=== PATIENT | male | born 1975 | race Caucasian/White ===

== ENCOUNTER 2023-07-06 15:57 | Observation (INO) ==
[2023-07-06] MEDS: Al Hydrox/Mg Hydrox/Simet LIQ 30 ML UDC PO ONE (16:51)
[2023-07-06 17:36] LABS: Urine Benzodiazepine Screen Presumptive Positive (None Detect); Urine Cannabinoids Screen None Detected (None Detect); Urine Opiates Screen Presumptive Positive (None Detect)
[2023-07-06] MEDS: Calcium Carb (TUMS) 500 mg CHEW TAB PO ONE (19:18)
[2023-07-06 23:26] LABS: ABS Eosinophils 0.3 10^3/uL (0.0-0.5); ABS Lymphocytes 1.1 10^3/uL (1.0-4.8); ABS Monocytes 0.6 10^3/uL (0.0-1.1); ABS Neutrophils 4.9 10^3/uL (1.5-7.6); ABS Nucleated RBC 0.02 10^3/ul; Eosinophil % 4.1 %; Hematocrit 17.8 % (38-53); Hemoglobin 5.1 g/dL (13.2-16.3); Mean Corpuscular Hemoglobin 18.5 pg (27-33); Mean Corpuscular Hgb Conc 28.7 g/dL (31-36); Mean Corpuscular Volume 64.5 fL (80-97); Mean Platelet Volume 6.9 fL (7.5-11.2); Nucleated Red Blood Cells % 0.3 %/100WBC (0.0-0.8); Platelet Count 635 10^3/uL (150-450); Red Blood Count 2.76 10^6/uL (4.06-5.63); Red Cell Distribution Width 23.4 % (12-17); White Blood Count 6.9 10^3/uL (3.6-10.2)
[2023-07-06 23:37] LABS: Activated Partial Thrombo Time 27.8 seconds (26.0-38.0); INR 1.25 (0.83-1.13)
[2023-07-06 23:59] LABS: Albumin 2.7 g/dL (3.2-5.2); Albumin/Globulin Ratio 0.6 (1-3); Calcium 7.6 mg/dL (8.6-10.3); Creatinine, Serum 0.73 mg/dL (0.67-1.17); Globulin 4.5 g/dL (2-4); Potassium 4.3 mmol/L (3.5-5.0); Total Bilirubin 0.3 mg/dL (0.2-1.0); Total Protein 7.2 g/dL (6.4-8.9); eGFR CKD-EPI 112.9 (>60)
[2023-07-07] MEDS: Sucralfate 1 gm SUSP 1 GM/10 ML UDC PO ONE (01:13)
[2023-07-07] MEDS: Piperacillin/Tazobac 3.375 BAG 3.375 GM/100 ML BAG IV ONE (01:15)
[2023-07-07] MEDS: Vancomycin 1,000 MG in NS 0.9% 250 ml 250 ML IVPB ONE (03:48)
[2023-07-07] MEDS: Albuterol/Ipratropium NEB.SOL (2.5/0.5 MG) 3 ML NEB.SOLN INH ONE (03:52)
[2023-07-07] MEDS: Albuterol/Ipratropium NEB.SOL (2.5/0.5 MG) 3 ML NEB.SOLN INH SCH (03:52)
[2023-07-07] MEDS ORDERED: Albuterol/Ipratropium NEB.SOL (2.5/0.5 MG) 3 ML NEB.SOLN INH PRN (03:56)
[2023-07-07] MEDS ORDERED: Ondansetron 4 mg VIAL 2 MG/ML 2 ml VIAL IV PRN (04:23)
[2023-07-07 05:09] LABS: Hematocrit 18.1 % (38-53); Hemoglobin 5.5 g/dL (13.2-16.3)
[2023-07-07 05:22] LABS: High Sensitivity Troponin 1 Hr 8 pg/mL (<20)
[2023-07-07] MEDS: Famotidine IV 10 MG/ML 2 ml VIAL (20 mg) IV SLOW PU ONE (05:42)
[2023-07-07] MEDS: Azithromycin 500 mg/250 ml NS 500 MG/250 ML BAG IVPB SCH (06:08)
[2023-07-07] MEDS: Pantoprazole VIAL 40 MG VIAL IV SCH (07:46)
[2023-07-07] MEDS: Enoxaparin 40 MG/0.4 ML SYR SUBCUT SCH (07:46)
[2023-07-07 13:59] LABS: ALT 9 U/L (7-52); AST 16 U/L (13-39); Albumin 2.2 g/dL (3.2-5.2); Albumin/Globulin Ratio 0.6 (1-3); Alkaline Phosphatase 84 U/L (35-149); Anion Gap 3 mmol/L (2-16); Blood Urea Nitrogen 12 mg/dL (6-24); CO2 Carbon Dioxide 30 mmol/L (22-32); Calcium 6.6 mg/dL (8.6-10.3); Chloride 104 mmol/L (101-111); Globulin 3.7 g/dL (2-4); Glucose 78 mg/dL (70-100); Potassium 4.1 mmol/L (3.5-5.0); Sodium 137 mmol/L (135-145); Total Bilirubin 0.3 mg/dL (0.2-1.0); Total Protein 5.9 g/dL (6.4-8.9); eGFR CKD-EPI 126.6 (>60)
[2023-07-07 16:39] LABS: % Iron Saturation 7 % (15-55); .Transferrin 206 mg/dL (203-362); Iron < 20 ug/dL (50-212); Total Iron Binding Capacity 288 mcg/dL (250-450); Unsaturated Iron Binding 268 ug/dL
[2023-07-07 17:04] LABS: Folate 6.38 ng/mL (5.90-24.80)
[2023-07-07 17:05] LABS: Vitamin B12 770 pg/mL (180-914)
[2023-07-07] MEDS: Morphine 2 MG/ML SYRINGE IV PRN (17:11)
[2023-07-07] MEDS: Iron Sucrose 200 MG in NS 0.9% 100 ml BAG 100 ML IVPB ONE (17:17)
[2023-07-08] MEDS: COWS Protocol Daily Order Reminder FOLLOW UP SCH (06:07)
[2023-07-08 06:25] LABS: ALT 13 U/L (7-52); Albumin 2.7 g/dL (3.2-5.2); Albumin/Globulin Ratio 0.6 (1-3); Alkaline Phosphatase 95 U/L (35-149); Anion Gap 7 mmol/L (2-16); Blood Urea Nitrogen 9 mg/dL (6-24); CO2 Carbon Dioxide 28 mmol/L (22-32); Calcium 7.7 mg/dL (8.6-10.3); Chloride 101 mmol/L (101-111); Creatinine, Serum 0.71 mg/dL (0.67-1.17); Globulin 4.8 g/dL (2-4); Glucose 90 mg/dL (70-100); Sodium 136 mmol/L (135-145); Total Bilirubin 0.3 mg/dL (0.2-1.0); Total Protein 7.5 g/dL (6.4-8.9); eGFR CKD-EPI 113.9 (>60)
[2023-07-08 06:36] VITALS: BP 157/97
[2023-07-08 07:05] LABS: ABS Basophils 0.1 10^3/uL (0.0-0.1); ABS Eosinophils 0.3 10^3/uL (0.0-0.5); ABS Lymphocytes 1.5 10^3/uL (1.0-4.8); ABS Monocytes 0.4 10^3/uL (0.0-1.1); ABS Neutrophils 2.8 10^3/uL (1.5-7.6); ABS Nucleated RBC 0.03 10^3/ul; Anisocytosis 3+; Eosinophil % 6.1 %; Hematocrit 30.3 % (38-53); Hemoglobin 8.8 g/dL (13.2-16.3); Hypochromasia 2+; Lymphocyte % 30.4 %; Mean Corpuscular Hemoglobin 21.7 pg (27-33); Mean Corpuscular Hgb Conc 29.1 g/dL (31-36); Mean Corpuscular Volume 74.6 fL (80-97); Mean Platelet Volume 6.6 fL (7.5-11.2); Microcytosis 2+; Nucleated Red Blood Cells % 0.6 %/100WBC (0.0-0.8); Platelet Count 36 10^3/uL (150-450); Polychromasia 1+; Red Blood Count 4.06 10^6/uL (4.06-5.63); Red Cell Distribution Width 24.8 % (12-17)
== END 2023-07-08 10:15 | disposition left against medical advice (07) ==
LOC: ED 15:57 → EDHOLD 15:57 → SUATTDRO 07-07 01:43 → SSU 07-07 07:56
PROVIDERS: ADMIT Student in an Organized Health Care Education/Training Program; ATTEND Hospitalist

== ENCOUNTER 2023-11-17 00:02 | Inpatient (IN) ==
[2023-11-17] MEDS: Propofol 10 mg/ml 100 ML BTL 1,000 MG/100 ML BTL IV SCH (03:36)
[2023-11-17 04:00] LABS: Hemoglobin 6.2 g/dL (13.2-16.3); INR 1.34 (0.83-1.13); Mean Corpuscular Hemoglobin 19.2 pg (27-33); Mean Corpuscular Hgb Conc 28.2 g/dL (31-36); Mean Corpuscular Volume 68.2 fL (80-97); Platelet Count 300 10^3/uL (150-450); Red Blood Count 3.23 10^6/uL (4.06-5.63); White Blood Count 14.2 10^3/uL (3.6-10.2)
[2023-11-17] MEDS ORDERED: Midazolam 5 mg/5 ml VIAL 1 mg/ml 5 ml VIAL (5 mg) IV SLOW PU PRN (04:05)
[2023-11-17 04:23] LABS: Resp Rate 18
[2023-11-17 04:25] LABS: PCO2 Arterial 54 mmHg (35-45); PO2 Arterial 72 mmHg (80-100)
[2023-11-17 04:32] LABS: Albumin 2.7 g/dL (3.2-5.2); Albumin/Globulin Ratio 0.7 (1-3); C Reactive Protein 43.46 mg/L (<8.01); Creatinine, Serum 1.05 mg/dL (0.67-1.17); Globulin 4.1 g/dL (2-4); Magnesium 2.6 mg/dL (1.9-2.7); Potassium 3.6 mmol/L (3.5-5.0); Total Bilirubin 0.3 mg/dL (0.2-1.0); Total Protein 6.8 g/dL (6.4-8.9); eGFR CKD-EPI 87.6 (>60)
[2023-11-17] MEDS: Enoxaparin 40 MG/0.4 ML SYR SUBCUT SCH (04:43)
[2023-11-17] MEDS: Chlorhexidine MOUTHWASH 0.12% 15 ML UDC TOPICAL SCH (04:43)
[2023-11-17] MEDS: Pantoprazole VIAL 40 MG VIAL IV SCH (04:43)
[2023-11-17] MEDS: D5NS 0.9% 1000 ml BAG 1,000 ML IV SCH (05:10)
[2023-11-17 05:28] LABS: ABS Eosinophils 0.1 10^3/uL (0.0-0.5); ABS Monocytes 0.6 10^3/uL (0.0-1.1); ABS Neutrophils 12.5 10^3/uL (1.5-7.6); ABS Nucleated RBC 0.01 10^3/ul; Anisocytosis 3+; Eosinophil % 0.8 %; Hypochromasia 3+; Lymphocyte % 7.2 %; Microcytosis 3+
[2023-11-17] MEDS: Morphine 2 MG/ML SYRINGE IV ONE (08:15)
[2023-11-17] MEDS: Albuterol/Ipratropium NEB.SOL (2.5/0.5 MG) 3 ML NEB.SOLN ONE (08:25)
[2023-11-17] MEDS: Morphine 2 MG/ML SYRINGE ONE (08:36)
[2023-11-17] MEDS: CMCS: FLUTICAS/UMECLI/VILANT 200-62.5-25 MDI (NF) INH SCH (08:47)
[2023-11-17 10:14] LABS: Hematocrit 25.7 % (38-53); Hemoglobin 7.8 g/dL (13.2-16.3)
[2023-11-17] MEDS ORDERED: Albuterol 0.5% CONC CONTINUOUS NEB.SOL 5 mg/ml 20 ml BOT INH PRN (13:18)
[2023-11-17] MEDS: Albuterol 2.5mg/3 ml (0.083%) NEB.SOLN INH PRN (13:37)
[2023-11-17] MEDS: Nicotine PATCH 14 MG/24 HR PATCH TRANSDERM SCH (14:12)
[2023-11-17] MEDS: Morphine 2 MG/ML SYRINGE IV PRN (14:31)
[2023-11-17] MEDS ORDERED: Lorazepam PYXIS KEY PRN (15:23)
[2023-11-17] MEDS: Albuterol 2.5mg/3 ml (0.083%) NEB.SOLN INH ONE (18:00)
[2023-11-17] MEDS: Albuterol/Ipratropium NEB.SOL (2.5/0.5 MG) 3 ML NEB.SOLN INH PRN (18:10)
[2023-11-17] MEDS: LORazepam 2 mg VIAL 1 ml IV PUSH ONE (18:17)
[2023-11-17] MEDS ORDERED: LORazepam 2 MG/ML 1 mL Syringe IV PRN (19:20)
[2023-11-17] MEDS: LORazepam 2 mg VIAL 1 ml IV PUSH PRN (21:18)
[2023-11-17] MEDS: NORMOSOL-R pH 7.4 1000 mL BAG 1,000 ML IV SCH (22:56)
[2023-11-17] MEDS ORDERED: Lactated Ringers 1000 ml BAG 1,000 ML IV SCH (23:00)
[2023-11-18 04:21] LABS: PCO2 Arterial 64 mmHg (35-45); PO2 Arterial 167 mmHg (80-100)
[2023-11-18 04:37] LABS: Calcium 7.5 mg/dL (8.6-10.3); Creatinine, Serum 0.79 mg/dL (0.67-1.17); eGFR CKD-EPI 109.6 (>60)
[2023-11-18 05:27] LABS: ABS Eosinophils 0.1 10^3/uL (0.0-0.5); ABS Lymphocytes 0.7 10^3/uL (1.0-4.8); ABS Monocytes 0.7 10^3/uL (0.0-1.1); ABS Neutrophils 13.4 10^3/uL (1.5-7.6); Anisocytosis 3+; Eosinophil % 0.8 %; Hematocrit 22.7 % (38-53); Hemoglobin 6.8 g/dL (13.2-16.3); Hypochromasia 2+; Lymphocyte % 4.9 %; Mean Corpuscular Hemoglobin 20.9 pg (27-33); Mean Corpuscular Volume 69.5 fL (80-97); Mean Platelet Volume 8.1 fL (7.5-11.2); Microcytosis 3+; Platelet Count 218 10^3/uL (150-450); Polychromasia 1+; Red Blood Count 3.27 10^6/uL (4.06-5.63); Red Cell Distribution Width 25.9 % (12-17)
[2023-11-18] MEDS: Albuterol/Ipratropium NEB.SOL (2.5/0.5 MG) 3 ML NEB.SOLN INH SCH (09:06)
[2023-11-18] MEDS: Pantoprazole VIAL 40 MG VIAL IV SCH (10:17)
[2023-11-18] MEDS: NS 0.9% 1000 ml BAG 1,000 ML IV SCH (10:17)
[2023-11-18] MEDS: Vancomycin 1,500 MG in NS 0.9% 250 ml 250 ML IVPB ONE (11:18)
[2023-11-18] MEDS: cefTRIAXone 1 gm/50 mL D5W 1 GM/50 ML BAG IV SCH (11:19)
[2023-11-18 11:39] LABS: Venous Bicarbonate HCO3 27.7 mmol/L (24-28)
[2023-11-18] MEDS: Methadone ORALSYR CONC LIQ 10 MG/ML PO SCH (14:14)
[2023-11-19 05:21] LABS: Blood Urea Nitrogen 11 mg/dL (6-24); CO2 Carbon Dioxide 35 mmol/L (22-32); Calcium 7.8 mg/dL (8.6-10.3); Chloride 100 mmol/L (101-111); Creatinine, Serum 0.59 mg/dL (0.67-1.17); Glucose 86 mg/dL (70-100); Potassium 4.1 mmol/L (3.5-5.0); Sodium 135 mmol/L (135-145); eGFR CKD-EPI 119.7 (>60)
[2023-11-19 05:29] LABS: ALT 131 U/L (7-52); AST 363 U/L (13-39); Albumin 2.7 g/dL (3.2-5.2); Albumin/Globulin Ratio 0.7 (1-3); Alkaline Phosphatase 84 U/L (35-149); Globulin 3.9 g/dL (2-4); Magnesium 1.7 mg/dL (1.9-2.7); Total Bilirubin 0.3 mg/dL (0.2-1.0); Total Protein 6.6 g/dL (6.4-8.9)
[2023-11-19 05:39] LABS: Creatine Kinase 10115 U/L (10-223)
[2023-11-19] MEDS: Magnesium Sulfate 2 gm BAG 2 GM/50 ML BAG IVPB ONE (06:05)
[2023-11-19 07:17] LABS: ABS Eosinophils 0.3 10^3/uL (0.0-0.5); ABS Lymphocytes 1.1 10^3/uL (1.0-4.8); ABS Monocytes 0.7 10^3/uL (0.0-1.1); ABS Neutrophils 6.2 10^3/uL (1.5-7.6); Anisocytosis 2+; Eosinophil % 3.7 %; Hematocrit 24.7 % (38-53); Hemoglobin 7.7 g/dL (13.2-16.3); Hypochromasia 1+; Lymphocyte % 13.1 %; Mean Corpuscular Hemoglobin 22.6 pg (27-33); Mean Corpuscular Hgb Conc 31.1 g/dL (31-36); Mean Corpuscular Volume 72.8 fL (80-97); Mean Platelet Volume 8.3 fL (7.5-11.2); Microcytosis 2+; Platelet Count 190 10^3/uL (150-450); Polychromasia 1+; White Blood Count 8.3 10^3/uL (3.6-10.2)
[2023-11-19] MEDS ORDERED: Vancomycin per Pharmacy 1 EA NOTE FOLLOW UP PRN (09:40)
[2023-11-19] MEDS: Vancomycin 1000 MG in NS 0.9% 250 ML IVPB SCH (10:03)
[2023-11-19] MEDS ORDERED: Nicotine GUM 4MG FRUIT FLAVOR PO PRN (20:27)
[2023-11-20 04:57] LABS: Hematocrit 25.4 % (38-53); Hemoglobin 7.7 g/dL (13.2-16.3); Mean Corpuscular Hemoglobin 22.4 pg (27-33); Mean Corpuscular Hgb Conc 30.2 g/dL (31-36); Red Blood Count 3.43 10^6/uL (4.06-5.63); Red Cell Distribution Width 26.8 % (12-17); White Blood Count 5.9 10^3/uL (3.6-10.2)
[2023-11-20 05:38] LABS: Anion Gap 3 mmol/L (2-16); Blood Urea Nitrogen 8 mg/dL (6-24); CO2 Carbon Dioxide 34 mmol/L (22-32); Calcium 7.7 mg/dL (8.6-10.3); Chloride 100 mmol/L (101-111); Creatinine, Serum 0.56 mg/dL (0.67-1.17); Glucose 113 mg/dL (70-100); Sodium 137 mmol/L (135-145); eGFR CKD-EPI 121.6 (>60)
[2023-11-20 07:29] LABS: ABS Eosinophils 0.5 10^3/uL (0.0-0.5); ABS Lymphocytes 0.8 10^3/uL (1.0-4.8); ABS Monocytes 0.6 10^3/uL (0.0-1.1); Eosinophil % 7.7 %; Mean Platelet Volume 8.1 fL (7.5-11.2); Platelet Count 191 10^3/uL (150-450)
[2023-11-20] MEDS: methylPREDNISolone SOD SUCC 40 mg/ml 1 ml VIAL IV ONE (09:07)
[2023-11-20] MEDS: Vancomycin Trough Check NOTE FOLLOW UP ONE (09:08)
[2023-11-20] MEDS: Cefepime 1 GM in Dextrose 1 GM/50 ML BAG IV SCH (10:08)
[2023-11-20 10:09] LABS: Magnesium 1.5 mg/dL (1.9-2.7); Potassium Redraw 3.6 mmol/L (3.5-5.0)
[2023-11-20] MEDS: Lidocaine 1% MPF 5 ML VIAL INJ ONE (11:04)
[2023-11-20] MEDS: Iohexol 350 (CONTRAST) 500 ML MDV IV ONE (13:00)
[2023-11-20] MEDS: Enoxaparin 60 MG/0.6 ML SYR SUBCUT SCH (14:57)
[2023-11-20 15:07] LABS: PCO2 Arterial 71 mmHg (35-45); PO2 Arterial 159 mmHg (80-100)
[2023-11-20] MEDS: CEFEPIME 2 GM in Dextrose 50 mL IV SCH (20:50)
[2023-11-21 07:01] LABS: Calcium 7.9 mg/dL (8.6-10.3); Creatinine, Serum 0.59 mg/dL (0.67-1.17); Magnesium 1.5 mg/dL (1.9-2.7); eGFR CKD-EPI 119.7 (>60)
[2023-11-21 07:16] LABS: Hematocrit 24.7 % (38-53); Hemoglobin 7.2 g/dL (13.2-16.3); Mean Corpuscular Hgb Conc 29.4 g/dL (31-36); Mean Corpuscular Volume 75.1 fL (80-97); Mean Platelet Volume 8.3 fL (7.5-11.2); Platelet Count 212 10^3/uL (150-450); Red Blood Count 3.29 10^6/uL (4.06-5.63); Red Cell Distribution Width 26.7 % (12-17); White Blood Count 6.9 10^3/uL (3.6-10.2)
[2023-11-21 07:32] LABS: ABS Eosinophils 0.1 10^3/uL (0.0-0.5); ABS Lymphocytes 1.1 10^3/uL (1.0-4.8); ABS Monocytes 0.8 10^3/uL (0.0-1.1); ABS Neutrophils 4.9 10^3/uL (1.5-7.6); Anisocytosis 2+; Eosinophil % 1.1 %; Hypochromasia 2+; Lymphocyte % 16.1 %; Microcytosis 1+; Polychromasia 1+
[2023-11-21] MEDS: Sulfur Hexaflouride MICROSPHR 25 MG VIAL IV ONE (10:03)
[2023-11-21] MEDS: Magnesium Sulfate 2 gm BAG 2 GM/50 ML BAG IV ONE (11:52)
[2023-11-21] MEDS: Nicotine Lozenge mini 4 MG LOZNG.MINI MT PRN (17:39)
[2023-11-21] MEDS: Cefepime 1 GM in Dextrose 1 GM/50 ML BAG IV SCH (20:16)
[2023-11-22 05:41] LABS: Hematocrit 23.6 % (38-53); Hemoglobin 7.2 g/dL (13.2-16.3); Mean Corpuscular Hemoglobin 23.1 pg (27-33); Mean Corpuscular Hgb Conc 30.5 g/dL (31-36); Mean Corpuscular Volume 75.9 fL (80-97); Mean Platelet Volume 8.2 fL (7.5-11.2); Platelet Count 237 10^3/uL (150-450); Red Blood Count 3.11 10^6/uL (4.06-5.63)
[2023-11-22 06:02] LABS: Blood Urea Nitrogen 14 mg/dL (6-24); CO2 Carbon Dioxide 44 mmol/L (22-32); Calcium 7.9 mg/dL (8.6-10.3); Chloride 99 mmol/L (101-111); Creatinine, Serum 0.55 mg/dL (0.67-1.17); Glucose 89 mg/dL (70-100); Magnesium 1.6 mg/dL (1.9-2.7); Sodium 142 mmol/L (135-145); eGFR CKD-EPI 122.2 (>60)
[2023-11-22] MEDS: Magnesium Sulfate 2 gm BAG 2 GM/50 ML BAG IVPB ONE ×2 (06:21→07:41)
[2023-11-22 06:26] LABS: Venous Bicarbonate HCO3 35.6 mmol/L (24-28)
[2023-11-22] MEDS: Nicotine PATCH 21 MG/24 HR PATCH TRANSDERM SCH (07:40)
[2023-11-22 08:00] LABS: ABS Eosinophils 0.5 10^3/uL (0.0-0.5); ABS Lymphocytes 1.2 10^3/uL (1.0-4.8); ABS Monocytes 0.6 10^3/uL (0.0-1.1); ABS Neutrophils 2.7 10^3/uL (1.5-7.6); Anisocytosis 2+; Eosinophil % 9.8 %; Hypochromasia 2+; Lymphocyte % 23.5 %; Nucleated Red Blood Cells % 0.1 %/100WBC (0.0-0.8)
[2023-11-22] MEDS: Methadone ORALSYR CONC LIQ 10 MG/ML PO SCH (08:21)
[2023-11-22] MEDS: Propofol 10 mg/ml 100 ML BTL 1,000 MG/100 ML BTL ONE (08:33)
[2023-11-22] MEDS: Alteplase (CATHFLO) 2 MG VIAL IV ONE ×2 (09:25→11:31)
[2023-11-22] MEDS: Vancomycin Trough Check NOTE FOLLOW UP ONE (09:49)
[2023-11-22] MEDS: Albuterol/Ipratropium NEB.SOL (2.5/0.5 MG) 3 ML NEB.SOLN INH PRN (11:23)
[2023-11-22] MEDS: Morphine 2 MG/ML SYRINGE IV ONE (14:52)
[2023-11-22] MEDS ORDERED: Saline NASAL SPRAY 0.65% BTL BOTH NARES PRN (21:40)
[2023-11-23] MEDS: Magnesium Sulfate 2 gm BAG 2 GM/50 ML BAG IVPB ONE (22:46)
[2023-11-24 05:51] VITALS: BP 138/59
[2023-11-24 09:35] LABS: Hematocrit 27.2 % (38-53); Hemoglobin 8.2 g/dL (13.2-16.3); Mean Corpuscular Hemoglobin 22.8 pg (27-33); Mean Corpuscular Hgb Conc 30.2 g/dL (31-36); Mean Corpuscular Volume 75.6 fL (80-97); Mean Platelet Volume 6.9 fL (7.5-11.2); Platelet Count 370 10^3/uL (150-450); Red Cell Distribution Width 28.2 % (12-17); White Blood Count 6.7 10^3/uL (3.6-10.2)
[2023-11-24 09:43] LABS: Creatinine, Serum 0.61 mg/dL (0.67-1.17); Magnesium 1.7 mg/dL (1.9-2.7); Potassium 4.3 mmol/L (3.5-5.0); eGFR CKD-EPI 118.5 (>60)
[2023-11-24 09:52] LABS: ABS Eosinophils 0.6 10^3/uL (0.0-0.5); ABS Lymphocytes 1.2 10^3/uL (1.0-4.8); ABS Monocytes 0.5 10^3/uL (0.0-1.1); ABS Neutrophils 4.3 10^3/uL (1.5-7.6); Anisocytosis 2+; Lymphocyte % 18.6 %; Microcytosis 1+
== END 2023-11-24 13:00 | disposition home or self-care (01) | DRG 144 ==
LOC: ICU 03:25 → SUATTDRO 03:25 → MED 11-22 21:08
PROVIDERS: ADMIT Student in an Organized Health Care Education/Training Program; ATTEND Internal Medicine Pulmonary Disease

== ENCOUNTER 2024-01-06 04:15 | Observation (INO) ==
[2024-01-06] MEDS: methylPREDNISolone SOD SUCC 125 mg 2 ML VIAL IV ONE (05:19)
[2024-01-06] MEDS: Albuterol/Ipratropium NEB.SOL (2.5/0.5 MG) 3 ML NEB.SOLN INH SCH ×2 (05:21→19:22)
[2024-01-06 05:23] LABS: INR 1.06 (0.85-1.14)
[2024-01-06 05:25] LABS: ABS Eosinophils 0.3 10^3/uL (0.0-0.5); ABS Lymphocytes 0.7 10^3/uL (1.0-4.8); ABS Monocytes 0.7 10^3/uL (0.0-1.1); ABS Neutrophils 2.5 10^3/uL (1.5-7.6); Eosinophil % 6.9 %; Hematocrit 28.2 % (38-53); Hemoglobin 8.6 g/dL (13.2-16.3); Lymphocyte % 16.8 %; Mean Corpuscular Hemoglobin 24.8 pg (27-33); Mean Corpuscular Hgb Conc 30.5 g/dL (31-36); Mean Corpuscular Volume 81.1 fL (80-97); Nucleated Red Blood Cells % 0.1 %/100WBC (0.0-0.8); Platelet Count 300 10^3/uL (150-450); Red Blood Count 3.48 10^6/uL (4.06-5.63); Red Cell Distribution Width 22.8 % (12-17); White Blood Count 4.3 10^3/uL (3.6-10.2)
[2024-01-06 05:43] LABS: High Sens Troponin Baseline 5 pg/mL (<20)
[2024-01-06 06:40] LABS: ALT 18 U/L (7-52); Albumin 3.6 g/dL (3.2-5.2); Albumin/Globulin Ratio 1.2 (1-3); Alkaline Phosphatase 85 U/L (35-149); Anion Gap 3 mmol/L (2-16); Blood Urea Nitrogen 16 mg/dL (6-24); CO2 Carbon Dioxide 40 mmol/L (22-32); Calcium 8.4 mg/dL (8.6-10.3); Chloride 95 mmol/L (101-111); Creatinine, Serum 0.71 mg/dL (0.67-1.17); Globulin 3.1 g/dL (2-4); Glucose 99 mg/dL (70-100); Sodium 138 mmol/L (135-145); Total Bilirubin 0.3 mg/dL (0.2-1.0); Total Protein 6.7 g/dL (6.4-8.9); eGFR CKD-EPI 113.2 (>60)
[2024-01-06 06:41] LABS: C Reactive Protein 21.53 mg/L (<8.01)
[2024-01-06 07:14] LABS: Potassium Redraw 4.4 mmol/L (3.5-5.0)
[2024-01-06] MEDS: Iohexol 350 (CONTRAST) 500 ML MDV IV ONE (11:18)
[2024-01-06 11:50] LABS: Ferritin 6.1 ng/mL (24-336)
[2024-01-06] MEDS: Methadone ORALSYR CONC LIQ 10 MG/ML PO SCH (12:30)
[2024-01-06] MEDS: Dexamethasone IV 4 MG/ML VIAL 1 ml VIAL IV SLOW PU ONE (12:34)
[2024-01-06] MEDS: Albuterol HFA INHALER 8 gm MDI INH PRN (12:38)
[2024-01-06] MEDS: CMC:FLUTICAS/UMECLI/VILANT 200-62.5-25 MDI (NF) INH SCH (12:40)
[2024-01-06] MEDS: Remdesivir 100 mg Vial 200 MG in NS 0.9% 250 ml 210 ML IV ONE (13:41)
[2024-01-07] MEDS: Remdesivir 100 mg Vial 100 MG in NS 0.9% 250 ml 230 ML IV SCH (10:27)
[2024-01-07] MEDS ORDERED: Iron Sucrose 200 MG in NS 0.9% 100 ml BAG 100 ML IVPB ONE (12:00)
[2024-01-07] MEDS ORDERED: Sulfur Hexaflouride MICROSPHR 25 MG VIAL IV PRN (12:14)
[2024-01-07] MEDS: Iron Sucrose 200 MG in NS 0.9% 100 ml BAG 100 ML IVPB SCH (13:16)
[2024-01-07] MEDS ORDERED: Ferric Gluconate IV 250 MG in NS 0.9% 250 ml 200 ML IVPB SCH (16:00)
[2024-01-08 09:25] VITALS: BP 130/69
== END 2024-01-08 12:50 | disposition home or self-care (01) ==
LOC: ED 04:15 → EDHOLD 04:15 → MED 10:44 → EDHOLD 10:51 → MED 20:27
PROVIDERS: ADMIT Internal Medicine; ATTEND Internal Medicine

== ENCOUNTER 2024-04-05 22:21 | Inpatient (IN) ==
[2024-04-05 23:22] LABS: ABS Basophils 0.1 10^3/uL (0.0-0.1); ABS Lymphocytes 0.7 10^3/uL (1.0-4.8); ABS Monocytes 0.5 10^3/uL (0.0-1.1); ABS Neutrophils 14.5 10^3/uL (1.5-7.6); ABS Nucleated RBC 0.01 10^3/ul; Eosinophil % 0.1 %; Hematocrit 33.6 % (38-53); Hemoglobin 10.9 g/dL (13.2-16.3); Lymphocyte % 4.5 %; Mean Corpuscular Hemoglobin 26.8 pg (27-33); Mean Corpuscular Hgb Conc 32.3 g/dL (31-36); Mean Platelet Volume 6.5 fL (7.5-11.2); Platelet Count 406 10^3/uL (150-450); Red Blood Count 4.04 10^6/uL (4.06-5.63); Red Cell Distribution Width 18.3 % (12-17); White Blood Count 15.8 10^3/uL (3.6-10.2)
[2024-04-05 23:48] LABS: High Sens Troponin Baseline 6 pg/mL (<20)
[2024-04-06 00:34] LABS: ALT 11 U/L (7-52); AST 19 U/L (13-39); Albumin 3.3 g/dL (3.5-5.7); Albumin/Globulin Ratio 0.8 (1-3); Alkaline Phosphatase 77 U/L (35-149); Anion Gap 5 mmol/L (2-16); Blood Urea Nitrogen 12 mg/dL (6-24); C Reactive Protein 139.79 mg/L (<8.01); CO2 Carbon Dioxide 29 mmol/L (22-32); Calcium 8.5 mg/dL (8.6-10.3); Chloride 94 mmol/L (101-111); Creatinine, Serum 0.73 mg/dL (0.67-1.17); Globulin 4.4 g/dL (2-4); Glucose 93 mg/dL (70-100); Potassium 4.5 mmol/L (3.5-5.0); Sodium 128 mmol/L (135-145); Total Bilirubin 0.5 mg/dL (0.2-1.0); Total Protein 7.7 g/dL (6.4-8.9); eGFR CKD-EPI 112.2 (>60)
[2024-04-06 01:18] LABS: High Sensitivity Troponin 1 Hr 8 pg/mL (<20)
[2024-04-06] MEDS: Lactated Ringers 1000 ml BAG 1,000 ML IV ONE ×2 (01:37→08:18)
[2024-04-06 03:34] LABS: Urine Appearance Clear; Urine Bilirubin Negative (Negative); Urine Blood Negative (Negative); Urine Color Light-Yellow; Urine Glucose Negative (Negative); Urine Ketones Negative (Negative); Urine Nitrite Negative (Negative); Urine Protein Negative (Negative); Urine Specific Gravity 1.012 (1.002-1.030); Urine Urobilinogen Negative (Negative)
[2024-04-06] MEDS: Iohexol 350 (CONTRAST) 500 ML MDV IV ONE (05:44)
[2024-04-06] MEDS: cefTRIAXone 1 gm/50 mL D5W 1 GM/50 ML BAG IV ONE (08:18)
[2024-04-06] MEDS: Azithromycin 500 mg/250 ml NS 500 MG/250 ML BAG IVPB ONE (09:31)
[2024-04-06 12:50] LABS: % Iron Saturation 6 % (15-55); .Transferrin 240 mg/dL (203-362); Iron < 20 ug/dL (50-212); Total Iron Binding Capacity 336 mcg/dL (250-450); Unsaturated Iron Binding 316 ug/dL
[2024-04-06] MEDS ORDERED: Ipratropium HFA INHALER(NF) (ALTERNATIVE = NEBS) INH SCH (13:00)
[2024-04-06] MEDS: Enoxaparin 40 MG/0.4 ML SYR SUBCUT SCH (14:58)
[2024-04-06] MEDS: methylPREDNISolone SOD SUCC 40 mg/ml 1 ml VIAL IV SCH (14:59)
[2024-04-06] MEDS: Methadone ORALSYR CONC LIQ 10 MG/ML PO SCH (16:25)
[2024-04-06] MEDS: Albuterol/Ipratropium NEB.SOL (2.5/0.5 MG) 3 ML NEB.SOLN INH PRN (19:43)
[2024-04-07 06:33] LABS: ABS Lymphocytes 1.2 10^3/uL (1.0-4.8); ABS Monocytes 1.3 10^3/uL (0.0-1.1); ABS Neutrophils 6.4 10^3/uL (1.5-7.6); Eosinophil % 0.4 %; Hematocrit 30.6 % (38-53); Hemoglobin 9.9 g/dL (13.2-16.3); Lymphocyte % 13.5 %; Mean Corpuscular Hemoglobin 27.5 pg (27-33); Mean Corpuscular Hgb Conc 32.5 g/dL (31-36); Mean Corpuscular Volume 84.5 fL (80-97); Mean Platelet Volume 6.8 fL (7.5-11.2); Platelet Count 385 10^3/uL (150-450); Red Blood Count 3.62 10^6/uL (4.06-5.63); Red Cell Distribution Width 17.6 % (12-17); White Blood Count 8.9 10^3/uL (3.6-10.2)
[2024-04-07 07:15] LABS: Calcium 8.6 mg/dL (8.6-10.3); Creatinine, Serum 0.68 mg/dL (0.67-1.17); Potassium 4.7 mmol/L (3.5-5.0); eGFR CKD-EPI 114.7 (>60)
[2024-04-07] MEDS: FLUTICAS/UMECLI/VILANT 200-62.5-25 MDI (NF) INH SCH (07:41)
[2024-04-07] MEDS ORDERED: Methadone ORALSYR CONC LIQ 10 MG/ML PO SCH (09:00)
[2024-04-07] MEDS: Fluticasone NASAL SPRAY 50MCG 16 gm SPRAY BTL INTRANASAL SCH (10:07)
[2024-04-07] MEDS: cefTRIAXone 1 gm/50 mL D5W 1 GM/50 ML BAG IV SCH (10:22)
[2024-04-07] MEDS: ceFAZolin 1 GM in Dextrose 1 GM/50 ML BAG IVPB SCH (20:40)
[2024-04-07] MEDS: Calcium Carb (TUMS) 500 mg CHEW TAB PO ONE (22:57)
[2024-04-08 06:00] LABS: Anion Gap 8 mmol/L (2-16); Blood Urea Nitrogen 24 mg/dL (6-24); CO2 Carbon Dioxide 26 mmol/L (22-32); Calcium 8.2 mg/dL (8.6-10.3); Chloride 101 mmol/L (101-111); Creatinine, Serum 0.77 mg/dL (0.67-1.17); Glucose 79 mg/dL (70-100); Magnesium 1.6 mg/dL (1.9-2.7); Sodium 135 mmol/L (135-145); eGFR CKD-EPI 110.4 (>60)
[2024-04-08 06:56] LABS: ABS Eosinophils 0.5 10^3/uL (0.0-0.5); ABS Lymphocytes 1.3 10^3/uL (1.0-4.8); ABS Monocytes 0.8 10^3/uL (0.0-1.1); ABS Neutrophils 3.5 10^3/uL (1.5-7.6); Hematocrit 29.4 % (38-53); Hemoglobin 9.4 g/dL (13.2-16.3); Lymphocyte % 21.8 %; Mean Corpuscular Hemoglobin 27.3 pg (27-33); Mean Corpuscular Volume 85.4 fL (80-97); Mean Platelet Volume 6.6 fL (7.5-11.2); Platelet Count 407 10^3/uL (150-450); Red Blood Count 3.45 10^6/uL (4.06-5.63); Red Cell Distribution Width 18.3 % (12-17); White Blood Count 6.2 10^3/uL (3.6-10.2)
[2024-04-08 09:27] LABS: Potassium, Whole Blood 4.8 mmol/L (3.4-4.5)
[2024-04-08] MEDS: Magnesium Sulf 4 GM/100 ML IV 4,000 MG/100 ML BAG IVPB ONE (09:52)
[2024-04-09 08:45] LABS: ABS Basophils 0.1 10^3/uL (0.0-0.1); ABS Eosinophils 0.6 10^3/uL (0.0-0.5); ABS Lymphocytes 1.4 10^3/uL (1.0-4.8); ABS Monocytes 0.6 10^3/uL (0.0-1.1); ABS Neutrophils 3.2 10^3/uL (1.5-7.6); Eosinophil % 10.8 %; Hematocrit 32.1 % (38-53); Hemoglobin 10.3 g/dL (13.2-16.3); Lymphocyte % 23.2 %; Mean Corpuscular Hemoglobin 27.1 pg (27-33); Mean Corpuscular Volume 84.5 fL (80-97); Mean Platelet Volume 6.5 fL (7.5-11.2); Platelet Count 476 10^3/uL (150-450); Red Cell Distribution Width 18.1 % (12-17); White Blood Count 5.9 10^3/uL (3.6-10.2)
[2024-04-09 09:00] LABS: Calcium 8.4 mg/dL (8.6-10.3); Creatinine, Serum 0.59 mg/dL (0.67-1.17); Potassium 4.3 mmol/L (3.5-5.0); eGFR CKD-EPI 119.7 (>60)
[2024-04-09] MEDS: Ipratropium HFA INHALER(NF) (ALTERNATIVE = NEBS) INH SCH (17:24)
[2024-04-10 06:20] LABS: ABS Eosinophils 0.8 10^3/uL (0.0-0.5); ABS Lymphocytes 1.5 10^3/uL (1.0-4.8); ABS Monocytes 0.6 10^3/uL (0.0-1.1); Eosinophil % 16.6 %; Hematocrit 30.4 % (38-53); Hemoglobin 9.8 g/dL (13.2-16.3); Lymphocyte % 29.9 %; Mean Corpuscular Hemoglobin 27.4 pg (27-33); Mean Corpuscular Hgb Conc 32.3 g/dL (31-36); Mean Corpuscular Volume 84.7 fL (80-97); Mean Platelet Volume 6.5 fL (7.5-11.2); Platelet Count 430 10^3/uL (150-450); Red Blood Count 3.59 10^6/uL (4.06-5.63); Red Cell Distribution Width 17.6 % (12-17); White Blood Count 4.9 10^3/uL (3.6-10.2)
[2024-04-10 06:50] LABS: Calcium 8.8 mg/dL (8.6-10.3); Creatinine, Serum 0.71 mg/dL (0.67-1.17); Potassium 4.3 mmol/L (3.5-5.0); eGFR CKD-EPI 113.2 (>60)
[2024-04-10] MEDS: Albuterol HFA INHALER 8 gm MDI INH PRN (13:29)
[2024-04-11 06:58] LABS: ABS Eosinophils 0.8 10^3/uL (0.0-0.5); ABS Lymphocytes 1.6 10^3/uL (1.0-4.8); ABS Monocytes 0.6 10^3/uL (0.0-1.1); ABS Neutrophils 2.5 10^3/uL (1.5-7.6); ABS Nucleated RBC 0.01 10^3/ul; Eosinophil % 13.7 %; Hematocrit 31.5 % (38-53); Hemoglobin 10.3 g/dL (13.2-16.3); Lymphocyte % 28.6 %; Mean Corpuscular Hemoglobin 27.8 pg (27-33); Mean Corpuscular Hgb Conc 32.7 g/dL (31-36); Mean Corpuscular Volume 84.9 fL (80-97); Mean Platelet Volume 6.4 fL (7.5-11.2); Nucleated Red Blood Cells % 0.1 %/100WBC (0.0-0.8); Platelet Count 413 10^3/uL (150-450); Red Blood Count 3.71 10^6/uL (4.06-5.63); Red Cell Distribution Width 17.8 % (12-17); White Blood Count 5.6 10^3/uL (3.6-10.2)
[2024-04-11 08:08] LABS: Calcium 8.6 mg/dL (8.6-10.3); Creatinine, Serum 0.66 mg/dL (0.67-1.17); Magnesium 1.9 mg/dL (1.9-2.7); Potassium 4.9 mmol/L (3.5-5.0); eGFR CKD-EPI 115.7 (>60)
[2024-04-11] MEDS: Ferric Gluconate IV 250 MG in NS 0.9% 250 ml 200 ML IVPB SCH ×2 (13:07→13:51)
[2024-04-11] MEDS: CMCS:diPHENhydraMINE CREAM 2%(NF) 28 gm TUBE TOPICAL SCH (15:39)
[2024-04-11] MEDS: Ipratropium HFA INHALER(NF) (ALTERNATIVE = NEBS) INH PRN (20:23)
[2024-04-11] MEDS: Calcium Carb (TUMS) 500 mg CHEW TAB PO PRN (21:21)
[2024-04-13 06:00] LABS: Hematocrit 27.8 % (38-53); Hemoglobin 9.1 g/dL (13.2-16.3); Mean Corpuscular Hemoglobin 27.6 pg (27-33); Mean Corpuscular Hgb Conc 32.7 g/dL (31-36); Mean Corpuscular Volume 84.3 fL (80-97); Mean Platelet Volume 6.4 fL (7.5-11.2); Platelet Count 402 10^3/uL (150-450); Red Cell Distribution Width 17.8 % (12-17); White Blood Count 7.6 10^3/uL (3.6-10.2)
[2024-04-13 06:38] LABS: Potassium 4.4 mmol/L (3.5-5.0)
[2024-04-13 06:39] LABS: Calcium 8.3 mg/dL (8.6-10.3); Creatinine, Serum 0.82 mg/dL (0.67-1.17); Magnesium 1.9 mg/dL (1.9-2.7); eGFR CKD-EPI 108.4 (>60)
[2024-04-13 07:04] LABS: ABS Eosinophils 0.9 10^3/uL (0.0-0.5); ABS Lymphocytes 1.5 10^3/uL (1.0-4.8); ABS Monocytes 0.8 10^3/uL (0.0-1.1); ABS Neutrophils 4.4 10^3/uL (1.5-7.6); ABS Nucleated RBC 0.01 10^3/ul; Eosinophil % 11.5 %; Lymphocyte % 19.9 %; Nucleated Red Blood Cells % 0.1 %/100WBC (0.0-0.8)
[2024-04-13] MEDS: Magnesium Sulfate 2 gm BAG 2 GM/50 ML BAG IVPB ONE (09:13)
[2024-04-14 06:08] LABS: Hemoglobin 10.1 g/dL (13.2-16.3); Mean Corpuscular Hemoglobin 27.9 pg (27-33); Mean Corpuscular Hgb Conc 32.5 g/dL (31-36); Mean Corpuscular Volume 85.8 fL (80-97); Mean Platelet Volume 6.5 fL (7.5-11.2); Platelet Count 389 10^3/uL (150-450); Red Blood Count 3.61 10^6/uL (4.06-5.63); Red Cell Distribution Width 18.8 % (12-17); White Blood Count 8.7 10^3/uL (3.6-10.2)
[2024-04-14 06:42] LABS: ABS Basophils 0.1 10^3/uL (0.0-0.1); ABS Eosinophils 0.8 10^3/uL (0.0-0.5); ABS Lymphocytes 1.7 10^3/uL (1.0-4.8); ABS Monocytes 1.1 10^3/uL (0.0-1.1); Eosinophil % 9.6 %; Lymphocyte % 19.4 %
[2024-04-14 06:53] LABS: Calcium 8.6 mg/dL (8.6-10.3); Creatinine, Serum 0.7 mg/dL (0.67-1.17); Potassium 4.3 mmol/L (3.5-5.0); eGFR CKD-EPI 113.7 (>60)
[2024-04-14] MEDS ORDERED: Ipratropium HFA INHALER(NF) (ALTERNATIVE = NEBS) INH PRN (07:27)
[2024-04-14] MEDS: Methadone ORALSYR CONC LIQ 10 MG/ML PO SCH (10:35)
[2024-04-14] MEDS: Albuterol HFA INHALER 8 gm MDI INH PRN (12:35)
[2024-04-14 13:37] VITALS: BP 145/96
== END 2024-04-14 17:40 | disposition home or self-care (01) | DRG 140 ==
LOC: ED 22:21 → EDHOLD 22:21 → SUATTDRO 04-06 10:01 → MEDTELE 04-06 10:38 → SUATTDRO 04-09 12:00
PROVIDERS: ADMIT Student in an Organized Health Care Education/Training Program; ATTEND Hospitalist